=== PATIENT | male | born 1985 | race Caucasian/White ===

== ENCOUNTER 2019-11-02 14:11 | Emergency (ER) | payer MEDICARE, MEDICAID, SELFPAY ==
--- NOTE | ~2019-11-02 | CT_ITS ---
EXAMINATION: CT brain wo con DATE: 11/02/2019 14:39 INDICATION: Head injury. TECHNIQUE: Computed tomography (CT) of the head was performed without intravenous contrast. The mA wa s adjusted according to patient size. Iterative reconstruction technique was employed. The dose-lengt h product was 605.33 mGy-cm. COMPARISON: Head CT 11/04/2013 FINDINGS: There is no intracranial hemorrhage, acute infarction, or abnormal intracranial mass lesion . The ventricles are normal in size. There is an old blowout fracture of medial wall of left orbit. T here is an acute blowout fracture of floor left orbit. There are fractures of lateral wall of left or bit and left zygomatic arch. There is hematoma in left maxillary sinus. The mastoid air cells are nor mal. There is left periorbital soft tissue swelling. IMPRESSION: 1. Normal brain. 2. Acute left zygomaticomaxillary complex fractures. Reviewed, dictated and finalized at location A.
--- NOTE | ~2019-11-02 | CT_ITS ---
EXAMINATION: CT facial & cervical spine wo DATE: 11/02/2019 14:39 INDICATION: Head injury. TECHNIQUE: Computed tomography (CT) of the maxillofacial region and cervical spine was performed with out intravenous contrast. Automated exposure control and iterative reconstruction technique were empl oyed. The dose-length product was 365.81 mGy-cm. COMPARISON: Head and cervical spine CT 11/04/2013 FINDINGS: MAXILLOFACIAL CT: There is left periorbital soft tissue swelling. There is an old blowout fracture of medial wall of le ft orbit. There are acute fractures of lateral wall and floor of left orbit, anterior and posterolate ral edwards of left maxillary sinus, and left zygomatic arch. There is depression of the zygoma. There is hematoma in left maxillary sinus. There are old fracture deformities of the nasal bones. There is an acute displaced fracture of left mandibular ramus with involvement of the socket of tooth 17. Toot h 17 demonstrates a carious lesion. Tooth 19 is broken with periapical lucencies. Tooth 16 is broken with periapical lucencies. There is a fracture of body of the mandible to the right of midline involv ing the sockets of teeth 25 and 26. There is gas in the floor of mouth and in left paper finisher space w ith soft tissue swelling. CERVICAL SPINE CT: Bone alignment is normal. Vertebral body heights and intervertebral disc heights are normal. The foll owing disc levels are specifically discussed: C2-C3: There is mild right uncovertebral joint osteoarthritis. There is mild bilateral facet joint os teoarthritis. There is no neural foraminal stenosis. There is no central canal stenosis. C3-C4: There is mild right and moderate left uncovertebral joint osteoarthritis. There is mild bilate ral facet joint osteoarthritis. There is mild right and moderate left neural foraminal stenosis. Ther e is mild central canal stenosis. C4-C5: There is moderate right and mild left uncovertebral joint osteoarthritis. There is mild bilate ral facet joint osteoarthritis. There is mild bilateral neural foraminal stenosis. There is no centra l canal stenosis. C5-C6: There is moderate bilateral uncovertebral joint osteoarthritis. There is no facet joint osteoa rthritis. There is mild bilateral neural foraminal stenosis. There is mild central canal stenosis. C6-C7: There is mild left uncovertebral joint osteoarthritis. There is mild bilateral facet joint ost eoarthritis. There is no neural foraminal stenosis. There is no central canal stenosis. C7-T1: There is no uncovertebral joint osteoarthritis. There is mild bilateral facet joint osteoarthr itis. There is no neural foraminal stenosis. There is no central canal stenosis. IMPRESSION: 1. Fractures of the left zygomaticomaxillary complex. 2. Fractures of the mandible. 3. Mild cervical spondylosis. Reviewed, dictated and finalized at location A.
[2019-11-02 14:07] VITALS: BP 133/94; PULSE 98; RESP 18; TEMP 37.4; O2SAT 99
[2019-11-02] MEDS: SODIUM CHLORIDE 0.9% IV 1,000 ML 999 ML IV CONT (14:42)
[2019-11-02] MEDS: MORPHINE SULFATE 4 MG/ML INJ IV PUSH (14:43)
[2019-11-02] MEDS: LORAZEPAM INJ 2 MG/ML VIAL 1 MG IV PUSH (14:44)
[2019-11-02] MEDS: ONDANSETRON INJ 4 MG/2 ML VIAL IV PUSH (14:44)
[2019-11-02 14:53] VITALS: RESP 18
[2019-11-02] MEDS: CLINDAMYCIN 900 MG/NS 50 ML 900 MG/50 ML PIGGYBACK 50 MG IVPB (15:11)
[2019-11-02 15:12] VITALS: BP 131/83; PULSE 85; RESP 14; O2SAT 98
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
[2019-11-02 16:15] VITALS: BP 125/71; PULSE 69; RESP 18; O2SAT 96
[2019-11-02 17:33] VITALS: BP 125/72; PULSE 63; RESP 14; O2SAT 93
--- NOTE | 2019-11-02 17:57 | PC.NURSE ---
pt somewhat uncooperative when rn trying to do belongings list. second rn present to witness
[2019-11-02 19:25] VITALS: BP 124/80; PULSE 64; RESP 18; O2SAT 99
== END 2019-11-02 19:35 | disposition short-term general hospital (02) ==
PROVIDERS: Emergency Provider General Practice; PCP Family Medicine
DX: S02.642B Fracture of ramus of left mandible, initial encounter for open fracture (principal); S02.40FA Zygomatic fracture, left side, initial encounter for closed fracture; S02.842A Fracture of lateral orbital wall, left side, initial encounter for closed fracture; S02.32XA Fracture of orbital floor, left side, initial encounter for closed fracture; M47.812 Spondylosis without myelopathy or radiculopathy, cervical region; F41.9 Anxiety disorder, unspecified; Y04.2XXA Assault by strike against or bumped into by another person, initial encounter
CPT/HCPCS: 70450; 70486; 72125; 96365; 96367; 96375; 99285; J0131; J2060; J2270; J2405; J7030

== ENCOUNTER 2019-12-03 15:56 | Emergency (ER) | payer MEDICARE, MEDICAID, SELFPAY ==
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
--- NOTE | ~2019-12-03 | CT_ITS ---
EXAMINATION: CT brain wo con DATE: 12/03/2019 18:08 INDICATION: Head injury. TECHNIQUE: Computed tomography (CT) of the head was performed without intravenous contrast. The mA wa s adjusted according to patient size. Iterative reconstruction technique was employed. The dose-lengt h product was 605.33 mGy-cm. COMPARISON: Head CT 11/02/2019 FINDINGS: There is no intracranial hemorrhage, acute infarction, or abnormal intracranial mass lesion . The ventricles are normal in size. There is an old blowout fracture of medial wall left orbit. Agai n seen are fractures of the lateral wall of left orbit and left zygomatic arch. The mastoid air cells are normal. IMPRESSION: 1. Normal brain. Reviewed, dictated and finalized at location A. IMPRESSION: 1. Normal brain.
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
[2019-12-03 16:21] VITALS: BP 124/92; PULSE 98; RESP 16; TEMP 37.2; O2SAT 98
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
[2019-12-03] MEDS: KETOROLAC (*BKC) 60 MG/2 ML VIAL IM (17:50)
--- NOTE | 2019-12-03 17:50 | PC.NURSE ---
[email or web address] notifies this RN that pt is in room with a bag of pills, this RN to room and pt states this is clindamycin. it is used to treat pnuemonia, infections and various things. my doctor told me if I was to bring any pills to the hospital this would be the best one to bring because it isn't a controlled substance. my doctor told me to put them in a baggy This RN questions your doctor told you to bring pills to the hospital in a bag? Pt replies yes he did, cause its fine cause its not a controlled substance
[2019-12-03 18:24] VITALS: BP 128/84; PULSE 96; RESP 18; O2SAT 98
--- NOTE | 2019-12-03 18:45 | PC.NURSE ---
Henri matos notified this RN that when he went into room to draw blood pt states I want dont want my blood drawn, i want paiin medicine, all i got was a shot it the ass and it hasn't done anything
--- NOTE | 2019-12-03 18:45 | PC.NURSE ---
ELIGIO matos states pt is stating that he wants to leave
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
== END 2019-12-03 19:15 | disposition left against medical advice (07) ==
PROVIDERS: Emergency Provider Emergency Medicine; PCP Family Medicine
DX: M27.2 Inflammatory conditions of jaws (principal); V43.62XA Car passenger injured in collision with other type car in traffic accident, initial encounter
CPT/HCPCS: 70450; 70486; 72125; 73030; 73080; 96372; 99284; J1885